=== PATIENT | female | born 1985 | race Caucasian/White ===

== ENCOUNTER 2017-08-05 13:25 | Emergency (ER) | payer BC ==
[2017-08-05 13:37] VITALS: O2SAT 99
--- NOTE | 2017-08-05 13:45 | EDPHY ---
HPI/HX/ROS/PE/MDM Narrative: CHIEF COMPLAINT: Left arm numbness, vision changes HISTORY OF PRESENT ILLNESS: The patient is a 32 y/o female complaining of left arm numbness and vision changes, onset 2 hours ago. For the last several days and this morning she felt normal. At 11:30 segments of her vision became bright and distorted; she believes it was in both eyes. When her vision changed she felt light headed and disoriented. However she did not have a headache, difficulty talking, or facial tingling. 35 minutes after her vision changed, she developed left hand numbness. The numbness is now improving, but she has a "weighted sensation" in her left hand up to her shoulder and is developing a similar sensation in her right hand. While walking into the ED she felt mildly off balance. No neck pain or chiropractic manipulation of neck. Uses albuterol inhaler for asthma. No control or hormone replacement. No history of diabetes. Non-smoker. Her maternal grandparents had strokes in their 60's. No fever, chills, chest pain, shortness of breath, palpitations, vomiting, diarrhea, urinary complaints, headache. REVIEW OF SYSTEMS: Aside from elements discussed in the HPI, a comprehensive 10-point review of systems was reviewed and is negative. PAST MEDICAL HISTORY: Asthma SOCIAL HISTORY: at bedside, lives in [facility] VITAL SIGNS: Reviewed by me GENERAL: Well-developed, well-nourished, resting comfortably in no respiratory distress. HEENT: Atraumatic. Eyes: No icterus, no injection. Anisocoria with right pupil larger than left Mouth: moist mucous membranes. No erythema or lesions. Neck: supple with no adenopathy. LUNGS: Clear to auscultation bilaterally, no wheezes, rhonchi or rales. CARDIAC: Regular rate and rhythm, no rubs, murmurs or gallops. ABDOMEN: Soft, nontender, nondistended, bowel sounds normal. BACK: No CVA tenderness. EXTREMITIES: No trauma. No edema. Range of motion is normal throughout. NEURO: Feels imbalanced while moving. Alert and oriented, cranial nerves II through XII are intact. Diminished sensation of left cheek and left jaw line, weakness on left arm and leg SKIN: Warm and dry, no rash. PSYCHIATRIC: Normal mentation, no agitation. Portions of this note were transcribed by a biomedical instrument technician. I personally performed a history, physical exam, medical decision making, and confirmed accuracy of information the transcribed note. ED Course: The patient is a 32 y/o female presenting with left hand numbness and vision changes, onset 2 hours ago. Her vision changes have improved, however she is now developing right hand numbness. On exam she has anisocoria as her right pupil is larger. She also has diminished sensation of her left cheek and left jaw line and weakness of her left extremities. Labs, EKG, chest x-ray, and head CT ordered. 1345: Stroke alert called by myself due to neurological deficits. 1401: BLAS Ruiz spoke with Dr. Yates, radiologist, her head CT is negative. 1404: Spoke with Dr. Yates regarding the patient's head CT. 1405: Consulted with Dr. Morillo, neurologist, from [facility] regarding this patient. 1407: 12-LEAD EKG: Please see the full report in [facility]. My interpretation: Sinus tachycardia with a rate of 103, probable left atrial abnormality 1409: Reassessed patient and discussed imaging findings. Dr. Morillo is on the stroke robot with the patient now. 1420: Consulted with Dr. Morillo, she believes this is a complicated migraine and not a stroke. Migraine cocktail administered. Brain MRI ordered. 1452: Spoke with Dr. Polo, radiologist, regarding this patient's brain MRI, which is normal. 1707: Reassessed patient and discussed imaging findings. 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 She is safe to go home as her symptoms have improved. I have advised her to follow up with Dr. Nascimento, neurologist, without fail. Return precautions provided; patient is comfortable with this plan. MDM: Differential diagnoses the patient's presenting complaints was considered including but not limited to intracranial injury, TIA, ischemic cerebrovascular accident, hemorrhagic cerebrovascular accident, hypoglycemia, complex migraine , metastases, tumor, seizure, or electrolyte abnormality - Data Points Imaging: Discussed imaging studies w/ call out clerk Radiologist, I viewed and interpreted images myself Laboratory Results: Laboratory Results 08/05/17 14:00 08/05/17 14:00 Medications Given: Discontinued Medications Dexamethasone (Decadron Injection) 10 mg IVP EDNOW ONE Stop: 03/01/18 14:21 Last Admin: 08/05/17 15:07 Dose: 10 mg Diphenhydramine HCl (Benadryl Injection) 25 mg IVP EDNOW ONE Stop: 08/05/17 14:21 Last Admin: 08/05/17 14:55 Dose: 25 mg Ketorolac Tromethamine (Toradol) 30 mg IVP EDNOW ONE Stop: 08/05/17 14:21 Last Admin: 08/05/17 14:55 Dose: 30 mg Metoclopramide HCl (Reglan Injection) 10 mg IVP EDNOW ONE Stop: 08/05/17 14:21 Last Admin: 08/05/17 15:07 Dose: 10 mg General Time Seen by Provider: 08/05/17 13:36 Initial Vital Signs: Initial Vital Signs Temperature (C) 36.5 C 08/05/17 13:25 Heart Rate 102 H 08/05/17 13:25 Respiratory Rate 20 08/05/17 13:25 Blood Pressure 110/88 H 08/05/17 13:25 O2 Sat (%) 99 08/05/17 13:25 O2 Delivery Mode Room Air Allergies/Adverse Reactions: egg Allergy (Verified 08/05/17 13:32) Abdominal Cramping lactose Allergy (Verified 08/05/17 13:32) Wheezing Milk Containing Products [dairy] Allergy (Verified 08/05/17 15:09) nuts and plums Allergy (Intermediate, Uncoded 08/24/11 11:37) Home Medications: Medication Instructions Recorded Albuterol 08/05/17 Departure - Departure Disposition: Home, Routine, Self-Care Clinical Impression: Complicated migraine, Left-sided weakness Condition: Good Instructions: Migraine Headache (ED), Acute Headache (ED), Weakness (ED) Additional Instructions: I recommend Ibuprofen (Motrin, Advil) for your headache. Your dose is: Ibuprofen 600 mg every 6-8 hours with food. You may also take 650mg Tylenol every 8 hours. I recommend alternating Ibuprofen and Tylenol. Follow up with Dr. Nascimento, neurologist, in the next week. Return to the emergency department immediately for recurrence of headache, nausea, vomiting, numbness, weakness, neck pain, fever or other concerns. Referrals: Lina Merlos MD [Primary Care Provider] - As per Instructions Preston Nascimento DO [Doctor of Osteopathy] - As per Instructions Report Scribed for: Celeste Brush Report Scribed by: Brandy Machado Date of Report: 08/05/17 Time of Report: 13:38
--- NOTE | 2017-08-05 14:09 | CPEKG ---
Heart Rate: 103 RR Interval: 583 P-R Interval: 124 QRSD Interval: 76 QT Interval: 352 QTC Interval: 461 P [place]: 60 QRS [place]: 70 T Wave [place]: 37 EKG Severity - BORDERLINE ECG - EKG Impression: SINUS TACHYCARDIA EKG Impression: PROBABLE LEFT ATRIAL ABNORMALITY Electronically Signed By: Celeste Brush 05-Aug-2017 21:21:49
[2017-08-05 14:13] LABS: PLATELET COUNT 285 10^3/uL (150-400)
[2017-08-05] MEDS ORDERED: DEXAMETHASONE 10 MG/ML VIAL IVP ONE (14:20)
[2017-08-05] MEDS ORDERED: METOCLOPRAMIDE 10 MG/2 ML VIAL IVP ONE (14:20)
[2017-08-05] MEDS ORDERED: KETOROLAC 30 MG/1 ML SDV IVP ONE (14:20)
[2017-08-05 14:26] LABS: INR 0.98 (0.83-1.16); PROTIME(PATIENT) 13.2 SEC (12.0-15.0)
[2017-08-05] MEDS ORDERED: KETOROLAC 15 MG/1 ML SDV ONE (14:53)
[2017-08-05 17:41] VITALS: BP 122/74; PULSE 96; RESP 18; TEMP 98.1
== END 2017-08-05 17:41 | disposition home or self-care (01) ==
DX: G43.109 Migraine with aura, not intractable, without status migrainosus (principal); R53.1 Weakness; J45.909 Unspecified asthma, uncomplicated
CPT/HCPCS: 96374; J1100; J1200; J1885; J2765